=== PATIENT | female | born 1985 | race Caucasian/White ===

== ENCOUNTER 2020-09-04 16:40 | Outpatient (REF) | payer SELFPAY | END 2020-09-04 16:41 | disposition home or self-care (01) | LOC: LBN 16:40 | PROVIDERS: Visit Provider Nurse Practitioner Adult Health | DX: Z20.822 Contact with and (suspected) exposure to COVID-19 (principal) | CPT/HCPCS: U0003 ==

== ENCOUNTER 2021-05-03 17:33 | Outpatient (REF) | payer MEDICAID, SELFPAY ==
[2021-05-05 10:05] LABS: COVID-19 RT-PCR UVMMC Result Negative (Negative)
== END 2021-05-03 17:34 | disposition home or self-care (01) ==
LOC: NCHCN 17:33
PROVIDERS: Visit Provider Nurse Practitioner Family
DX: Z20.822 Contact with and (suspected) exposure to COVID-19 (principal); J06.9 Acute upper respiratory infection, unspecified
CPT/HCPCS: U0003